=== PATIENT | female | born 1935 | race Asian ===

== ENCOUNTER 2017-04-02 15:05 | Emergency (ER) | payer MEDICARE, OTHER ==
[~2017-04-02] VITALS: Ht 152.4 cm; Wt 59.1 kg
[~2017-04-02 15:05] MED LIST: ARIP5TAB8 PO; ATOR40TA28; CALC500T62; DILT180C70 PO; FERR325C; LEVO500 PO; LISI20TA; METF500T7; MIRT30; MYLANTA; OLME20TA20 PO
[2017-04-02 15:32] LABS: GLUCOSE,POINT OF CARE 141 MG/DL (70-110)
[2017-04-02] MEDS ORDERED: ACETAMINOPHEN 325 MG TABLET PO ONE (15:45)
[2017-04-02] MEDS ORDERED: BACITRACIN 0.9 GM PACKET OINTMENT TP ONE (15:45)
[2017-04-02 16:53] VITALS: BP 138/82
== END 2017-04-02 17:35 | disposition home or self-care (01) ==
LOC: EMS 15:07
DX: R07.81 Pleurodynia (principal); M25.511 Pain in right shoulder; E11.9 Type 2 diabetes mellitus without complications; K21.9 Gastro-esophageal reflux disease without esophagitis; E78.00 Pure hypercholesterolemia, unspecified; I10 Essential (primary) hypertension; V43.63XA Car passenger injured in collision with pick-up truck in traffic accident, initial encounter; Y93.89 Activity, other specified; Y92.89 Other specified places as the place of occurrence of the external cause; Y99.8 Other external cause status
CPT/HCPCS: 71020; 82962; 99284

== ENCOUNTER → 2017-04-04 | Outpatient (CLI) | payer MEDICARE, OTHER ==
[~2017-04-04] MED LIST changes: -LEVO500 PO
== END | disposition home or self-care (01) ==
LOC: RADPV 15:26
PROVIDERS: ATTEND Internal Medicine
DX: R91.8 Other nonspecific abnormal finding of lung field (principal); V89.2XXD Person injured in unspecified motor-vehicle accident, traffic, subsequent encounter
CPT/HCPCS: 71101

== ENCOUNTER 2018-02-18 18:36 | Emergency (ER) | payer MEDICARE, OTHER ==
[~2018-02-18] VITALS: Ht 152.4 cm; Wt 45.5 kg
[~2018-02-18 18:36] MED LIST changes: +OLME20TA10 PO; -OLME20TA20 PO
[2018-02-18 19:08] LABS: EOSINOPHILS % (AUTO) 5.7 % (1.0-6.0); HEMATOCRIT 32.5 % (36-46); HEMOGLOBIN 11.4 g/dL (12.0-16.0); LYMPHOCYTES # (AUTO) 1.6 K/uL (1.0-4.8); MEAN CORPUSCULAR HEMOGLOBIN 32.8 pg (26.0-34.0); MEAN CORPUSCULAR VOLUME 94 fL (80-100); MONOCYTES # (AUTO) 0.3 K/uL (0.1-1.0); MONOCYTES % (AUTO) 7.6 % (2.0-9.0); NEUTROPHILS % (AUTO) 47.7 % (40.0-70.0); PLATELET COUNT (AUTO) 234 K/uL (150-450); RED BLOOD CELL COUNT(AUTO) 3.47 MIL/uL (4.00-5.20); RED CELL DISTRIBUTION WIDTH 11.9 % (11.5-14.5)
[2018-02-18 19:37] LABS: CREATININE 0.98 mg/dL (0.60-1.30); POTASSIUM 4.4 mmol/L (3.5-5.1)
[2018-02-18 19:45] LABS: BILIRUBIN,TOTAL 0.5 mg/dL (0.1-1.0); TOTAL PROTEIN, SERUM 7.8 g/dL (6.4-8.2)
[2018-02-18 20:32] LABS: APPEARANCE,URINE CLEAR (CLEAR); BILIRUBIN,URINE NEGATIVE (NEGATIVE); GLUCOSE, URINE (UA) NEGATIVE (NEGATIVE); KETONES,URINE NEGATIVE (NEGATIVE); LEUKOCYTE ESTERASE ,URINE NEGATIVE (NEGATIVE); NITRATE,URINE NEGATIVE (NEGATIVE); OCCULT BLOOD,URINE NEGATIVE (NEGATIVE); PROTEIN,URINE NEGATIVE (NEGATIVE); UROBILINOGEN,URINE 0.2 mg/dL (<=1.0)
[2018-02-18] MEDS ORDERED: SODIUM CHLORIDE 0.9% 100 ML ONE (21:44)
[2018-02-18] MEDS ORDERED: IOVERSOL 320 MG/ML 100 ML VIAL ONE (21:44)
[2018-02-18] MEDS ORDERED: PB/HYOSCY/ATR/SCOP/LIDO/MAALOX 55 ML BOTTLE PO ONE (21:45)
[2018-02-18] MEDS ORDERED: HydrALAZINE HCL 20 MG/ML VIAL IVP ONE (21:45)
[2018-02-18] MEDS ORDERED: ASPIRIN 81 MG CHEWABLE TABLET PO ONE (23:30)
[2018-02-18] MEDS ORDERED: NITROGLYCERIN 2% (1 GM=INCH) PACKET TP ONE (23:30)
[2018-02-19 00:53] VITALS: BP 155/91
== END 2018-02-19 01:18 | disposition short-term general hospital (02) ==
LOC: EMS 18:37
DX: R10.12 Left upper quadrant pain (principal); I10 Essential (primary) hypertension; E87.1 Hypo-osmolality and hyponatremia; R07.9 Chest pain, unspecified; R91.8 Other nonspecific abnormal finding of lung field; R11.0 Nausea; E11.9 Type 2 diabetes mellitus without complications; K21.9 Gastro-esophageal reflux disease without esophagitis; E78.00 Pure hypercholesterolemia, unspecified; Z79.899 Other long term (current) drug therapy
CPT/HCPCS: 36415; 71045; 74177; 80053; 81003; 83605; 83690; 84484; 85025; 93005; 96374; 99285; J0360; J7050; Q9967